=== PATIENT | male | born 1995 | race Two or more races ===

== ENCOUNTER 2017-03-27 13:57 | Emergency (ER) | payer BC ==
[2016-06-28 16:25] VITALS: BP 134/77
[~2017-03-27 13:57] MED LIST: AMOX500C PO; OFLO5DRO4 OU
--- NOTE | 2017-03-27 14:27 | RAD ---
Indication: Laceration to the right wrist with pain and swelling. Time of exam 1420 hours. 3 views of the right wrist were obtained. A bandage overlies the volar soft tissues. The distal radius and ulna are intact. The carpus and metacarpals are intact. No fractures are seen. Indeterminate tiny densities are noted on the lateral view adjacent to the volar cortex of the distal radius. These are superimposed over the distal radius on AP and lateral views. Foreign bodies cannot be excluded. Impression: No acute bony abnormality is detected. There are some opacities, as described above in which foreign bodies cannot be excluded.
[2017-03-27] MEDS ORDERED: DIPHTH,PERTUSS(ACELL),TET TOX 0.5 ML DISP.SYRIN. VAX IM ONE (14:30)
[2017-03-27] MEDS ORDERED: LIDOCAINE 1% / SOD BICARB 8.4% 20 ML VIAL. IJ ONE (15:15)
[2017-03-27] MEDS ORDERED: AMOX1TAB61 PO (16:44)
[2017-03-27] MEDS ORDERED: MORP15TA PO (16:44)
--- NOTE | 2017-03-27 16:45 | PHYS DOC ---
Past Medical History Past Medical History: No Pertinent History Past Surgical History: No Surgical History Alcohol Use: Heavy Drug Use: None Adult General Chief Complaint Chief Complaint: TRAUMA ACTIVATION HPI HPI 21-year-old male presenting to the emergency department after sustaining a laceration to the patient's right forearm. This occurred yesterday when he had been drinking. He reports that he walked into a glass wall. He has pain in his right forearm that is sharp nonradiating mild and without alleviating factors. He denies any other injuries. Review of systems is negative for elbow pain or shoulder pain more proximally. He denies headache chest pain abdominal pain. All other review of systems is negative unless otherwise noted in history of present illness. Pertinent physical exam findings showed the patient is able to make it a okay, given a thumbs up and cross his fingers. He has normal sensation of the hand. The patient has a palpable radial pulse and ulnar pulse. 2 second cap refill distally. There is swelling of the hand generally. ED course: 21-year-old male presenting with a laceration to his right forearm. Initially the nurse was unable to palpate a pulse so a trauma activation was called. After unwrapping the wound it was clear the patient did have a pulse and he was neurovascularly intact however we are unable to cancel this activation I am told by nursing staff. On examination of the wound the patient has a one and half centimeter laceration on his forearm. After irrigation and numbing I was able to examine the wound and good lighting under sterile conditions with good hemostasis under active range of motion of each of the phalanxes. There is no evidence of tendon laceration or injury. The patient has full range of motion of all of his fingers. There is moderate swelling of the hand distally. Ultrasound of the artery was obtained which showed possible thrombosis of the radial artery. I discussed the case with Dr Mcmullen who recommended that the patient follow-up with him in clinic. After my conversation with him, it appeared that he felt the patient had collateral flow through the superficial and deep palmar arch from the ulnar artery causing the palpable pulse distally. I defer to his expertise at this point for recommendations. I asked if we should do a CT angiography and he felt this would not add to the patient's care. X-ray shows no obvious foreign body. Compartments are soft to palpation. No foreign body on inspection of the wound. The laceration was repaired using nonabsorbable sutures. He was then placed in a functional hand position splint and referred to our hand surgeon for follow- up in one day. The patient was then discharged home in stable condition. Follow up with vascular surgeon in 2 days and hand surgeon at the [facility] in 2 days. They were to return if their symptoms worsened or if they were concerned for any reason. [id number] discharge instructions and return precautions were given. Patient's questions were answered to their satisfaction. Patient is comfortable plan. Review of Systems Review of Systems SEE ABOVE. Current Medications Current Medications Current Medications Medications (Trade) Dose Ordered Sig/Glenny Start Time Stop Time Status Last Admin Dose Admin Diphtheria/ Tetanus/Acell Pertussis (Boostrix) 0.5 ml ONCE ONCE 03/27/17 14:30 03/27/17 14:31 DC 03/27/17 14:34 0.5 ML Lidocaine/Sodium Bicarbonate (Buffered Lidocaine 1%) 20 ml 1X ONCE 03/27/17 15:15 03/27/17 15:16 DC 03/27/17 16:22 20 ML Allergies Allergies Allergies Coded Allergies Type Severity Reaction Last Updated Verified No Known Drug Allergies 06/22/15 No Physical Exam Physical Exam Constitutional: Well developed, well nourished, no acute distress, non-toxic appearance. HENT: Normocephalic, atraumatic, bilateral external ears normal, oropharynx moist, no oral exudates, nose normal. [] Eyes: PERRLA, EOMI, conjunctiva normal, no discharge. [] Neck: Normal range of motion, no tenderness, supple, no stridor. Cardiovascular:Heart rate regular rhythm, no murmur [] Lungs & Thorax: Bilateral breath sounds clear to auscultation Abdomen: Bowel sounds normal, soft, no tenderness, no masses, no pulsatile masses. [] Skin: Warm, dry, no erythema, no rash. Back: No tenderness, no CVA tenderness. [] Extremities: see above Neurologic: Alert and oriented X 3, normal motor function, normal sensory function, no focal deficits noted. Psychologic: Affect normal, judgement normal, mood normal. [] EKG EKG [] Radiology/Procedures Radiology/Procedures [] Course & Med Decision Making Course & Med Decision Making Pertinent Labs and Imaging studies reviewed. (See chart for details) [] Dragon Disclaimer Dragon Disclaimer This electronic medical record was generated, in whole or in part, using a voice recognition dictation system. Departure Departure Impression: Primary Impression: Laceration of right upper extremity Disposition: 01 HOME, SELF-CARE Condition: STABLE Referrals: NO PCP (PCP) HOLGER PRESTON II, MD Patient Instructions: Open Wound, Forearm, [id number] Additional Instructions: Thank you for allowing us to participate in your care today. Followup with hand surgeon at [facility] in 1-2 days, information provided below. If you do not have a primary care provider you can ask for a list of our primary care providers. Return to the emergency department you have any new or concerning findings. If you cannot get in to the hand surgeon's office you may return to the emergency department for repeat examination. Appointments may be made with Troy Sinha M.D., Adriana Cage M.D., and Yevgeniy Waters M.D. by calling [phone]. This should be evaluated by the primary care physician and any necessary consulting services for continued management within a few days after discharge. Return to emergency room if you have any new or concerning symptoms including but not limited to fever, chills, nausea, vomiting, intractable pain, any new rashes, chest pain, shortness of air, uncontrolled bleeding, difficulty breathing, and/or vision loss. You may have been prescribed medication that can change in your level of thinking and ability to operate machinery. These medications include hydrocodone and Ativan. Also, Benadryl has been known to do this as well. Be sure to check with your pharmacist and ask if the medications you've prescribed can affect your level of consciousness. I recommend not operating heavy machinery or driving while on medication such as these. Scripts Amoxicillin/Potassium Clav (AUGMENTIN 875-125 TABLET) 1 Each Tablet 1 TAB PO BID, #14 TAB Prov: PRASANNA EDWARDS MD 03/27/17 Morphine Sulfate (MORPHINE SULFATE) 15 Mg Tablet 1 TAB PO PRN Q6-8HRS Y for SEVERE PAIN, #8 TAB Prov: PRASANNA EDWARDS MD 03/27/17 Problem Qualifiers Primary Impression: Laceration of right upper extremity Encounter type: initial encounter Qualified Codes: S41.111A - Laceration without foreign body of right upper arm, initial encounter PRASANNA EDWARDS MD Mar 27, 2017 16:45
--- NOTE | 2017-03-27 17:55 | RAD ---
Duplex sonography of the right radial artery HISTORY: Laceration radial artery of the proximal right wrist. FINDINGS: Duplex sonography of the right radial artery at the level of the laceration down to the wrist was performed including grayscale evaluation and color flow and waveform spectral analysis. Proximal to the laceration, the right renal artery is patent. Starting at the level of the laceration and distal to it extending into the right wrist, the artery is thrombosed. IMPRESSION: Thrombosis of right radial artery at the level of and distal to laceration injury. Electronically signed by: Rodrigo Morales MD (03/27/2017 5:51 PM)
--- NOTE | 2017-03-28 16:19 | RAD ---
Indication: Laceration to the right wrist with pain and swelling. Time of exam 1420 hours. 3 views of the right wrist were obtained. A bandage overlies the volar soft tissues. The distal radius and ulna are intact. The carpus and metacarpals are intact. No fractures are seen. Indeterminate tiny densities are noted on the lateral view adjacent to the volar cortex of the distal radius. These are superimposed over the distal radius on AP and lateral views. Foreign bodies cannot be excluded. Impression: No acute bony abnormality is detected. There are some opacities, as described above in which foreign bodies cannot be excluded. DICTATED and SIGNED BY: MONO OCONNELL MD DATE: 03/27/17 1422 [facility]
== END 2017-03-27 18:45 | disposition home or self-care (01) ==
LOC: ER 13:57
DX: S51.811A Laceration without foreign body of right forearm, initial encounter (principal); M79.631 Pain in right forearm; W25.XXXA Contact with sharp glass, initial encounter; Y93.89 Activity, other specified; Y92.89 Other specified places as the place of occurrence of the external cause; Y99.8 Other external cause status
CPT/HCPCS: 12001; 29125; 73110; 73130; 90471; 90715; 93922; 99284-25

== ENCOUNTER 2017-04-05 10:02 | Emergency (ER) | payer BC ==
[~2017-04-05] VITALS: Ht 152.4 cm; Wt 63.5 kg
[~2017-04-05 10:02] MED LIST changes: +AMOX1TAB61 PO; +MORP15TA PO
[2017-04-05 10:05] VITALS: BP 121/91
--- NOTE | 2017-04-05 10:20 | PHYS DOC ---
Past Medical History Past Medical History: No Pertinent History Past Surgical History: No Surgical History Alcohol Use: Heavy Drug Use: None Adult General Chief Complaint Chief Complaint: SUTURE/STAPLE REMOVAL [facility] HPI Patient is a 21 year old male since emergency department for suture removal. Patient was seen here approximately 9 days ago and had 3 sutures placed in the right forearm. Patient denies any drainage or discharge from the site. He denies fever or chills. Review of Systems Review of Systems Constitutional: Denies fever or chills [] Eyes: Denies change in visual acuity, redness, or eye pain [] HENT: Denies nasal congestion or sore throat [] Respiratory: Denies cough or shortness of breath [] Cardiovascular: No additional information not addressed in [facility] [] GI: Denies abdominal pain, nausea, vomiting, bloody stools or diarrhea [] : Denies dysuria or hematuria [] Musculoskeletal: Denies back pain or joint pain [] Integument: Denies rash or skin lesions. Patient here for suture removal Neurologic: Denies headache, focal weakness or sensory changes [] Endocrine: Denies polyuria or polydipsia [] Allergies Allergies Allergies Coded Allergies Type Severity Reaction Last Updated Verified No Known Drug Allergies 06/22/15 No Physical Exam Physical Exam Constitutional: Well developed, well nourished, no acute distress, non-toxic appearance. [] HENT: Normocephalic, atraumatic, bilateral external ears normal, oropharynx moist, no oral exudates, nose normal. [] Eyes: PERRLA, EOMI, conjunctiva normal, no discharge. [] Neck: Normal range of motion, no tenderness, supple, no stridor. [] Cardiovascular:Heart rate regular rhythm, no murmur [] Lungs & Thorax: Bilateral breath sounds clear to auscultation [] Skin: Warm, dry, no erythema, no rash. Patient with 3 sutures that appear to be intact without redness, tenderness or drainage. Edges approximated well. Back: No tenderness Extremities: No tenderness, no cyanosis, no clubbing, ROM intact, no edema. [] Neurologic: Alert and oriented X 3, normal motor function, normal sensory function, no focal deficits noted. [] Psychologic: Affect normal, judgement normal, mood normal. [] EKG EKG [] Radiology/Procedures Radiology/Procedures [] Course & Med Decision Making Course & Med Decision Making Pertinent Labs and Imaging studies reviewed. (See chart for details) Patient was instructed to the keep the area clean and dry. Clean the site with soap and water and apply antibiotics to the area. Continue to monitor for signs and symptoms of infection: redness, warmth, tenderness or any yellow/greenish drainage noted. Patient was instructed to followup with primary care provider as needed. Signs and symptoms to return to the emergency department has been provided. Patient agrees with discharge instructions, treatment regimen and followup recommendations. [] Dragon Disclaimer Dragon Disclaimer This electronic medical record was generated, in whole or in part, using a voice recognition dictation system. Departure Departure Impression: Primary Impression: Visit for suture removal Disposition: HOME, SELF-CARE Condition: STABLE Referrals: NO PCP (PCP) Patient Instructions: Suture Removal-Brief Additional Instructions: Keep the clean and dry Clean the site with soap and water Place antibiotic over the site twice a day Continue to watch for signs and symptoms of infection: redness, warmth, tenderness or any yellow/greenish drainage that may come from the site Followup with primary care provider as needed Return to emergency department as needed for signs and symptoms that become worse. LEELEE HAYDEN PULLING UNIT OPERATOR Apr 05, 2017 10:20
== END 2017-04-05 10:30 | disposition home or self-care (01) ==
LOC: ER 10:02
DX: S51.811D Laceration without foreign body of right forearm, subsequent encounter (principal); X58.XXXD Exposure to other specified factors, subsequent encounter; Y92.89 Other specified places as the place of occurrence of the external cause; Y99.8 Other external cause status
CPT/HCPCS: 99281

== ENCOUNTER 2018-01-26 21:39 | Emergency (ER) | payer BC ==
[2018-01-26] MEDS: LIDOCAINE 2%/EPI 1:100,000 20 ML VIAL. IJ (22:12)
[2018-01-26] MEDS: DIPHTH,PERTUSS(ACELL),TET TOX 0.5 ML DISP.SYRIN. VAX IM ×2 (22:12→22:14)
== END 2018-01-26 23:54 | disposition home or self-care (01) ==
LOC: ER 21:39
DX: S01.81XA Laceration without foreign body of other part of head, initial encounter (principal); S50.312A Abrasion of left elbow, initial encounter; S09.90XA Unspecified injury of head, initial encounter; F10.129 Alcohol abuse with intoxication, unspecified; M25.561 Pain in right knee; W10.8XXA Fall (on) (from) other stairs and steps, initial encounter; Y93.89 Activity, other specified; Y92.89 Other specified places as the place of occurrence of the external cause; Y99.8 Other external cause status
CPT/HCPCS: 12011; 70450; 72125; 73562; 90715; 99284-25; J3490